=== PATIENT | female | born 1965 | race Native Hawaiian/Other Pacific Islander ===

== ENCOUNTER 2018-04-23 10:01 | Outpatient (CLI) | payer OTHER ==
[2018-04-23 10:23] LABS: PLATELET COUNT 501 K/uL (152-353)
== END 2018-04-23 19:14 | disposition home or self-care (01) ==
LOC: LABW 10:01
PROVIDERS: Internal Medicine
DX: E03.8 Other specified hypothyroidism (principal); E78.00 Pure hypercholesterolemia, unspecified; R79.89 Other specified abnormal findings of blood chemistry
CPT/HCPCS: 36415; 80053; 80061; 81000; 82306; 84439; 84443; 85027

== ENCOUNTER 2019-10-20 07:44 | Outpatient (CLI) | payer OTHER ==
[2019-10-20 09:49] LABS: PLATELET COUNT 500 K/uL (152-353)
== END 2019-10-20 19:46 | disposition home or self-care (01) ==
LOC: LABW 07:44
PROVIDERS: Internal Medicine
DX: E03.8 Other specified hypothyroidism (principal)
CPT/HCPCS: 36415; 80061; 81000; 82672; 83001; 83002; 84144; 84439; 84443; 85027

== ENCOUNTER 2020-06-24 15:02 | Outpatient (CLI) | payer OTHER | END 2020-06-24 19:25 | disposition home or self-care (01) | LOC: LAB 15:02 | DX: R30.0 Dysuria (principal) | CPT/HCPCS: 87088 ==

== ENCOUNTER 2020-11-20 12:45 | Outpatient (CLI) | payer OTHER ==
[2020-11-20 13:00] LABS: PLATELET COUNT 570 K/uL (152-353)
== END 2020-11-20 21:44 | disposition home or self-care (01) ==
LOC: LABW 12:45
PROVIDERS: ATTEND Internal Medicine Hematology & Oncology
DX: D47.3 Essential (hemorrhagic) thrombocythemia (principal)
CPT/HCPCS: 36415; 85027

== ENCOUNTER 2021-08-29 07:37 | Outpatient (CLI) | payer OTHER ==
[2021-08-29 08:45] LABS: POTASSIUM 4.2 mmol/L (3.6-5.2)
[2021-08-29 10:44] LABS: PLATELET COUNT 667 K/uL (152-353)
== END 2021-08-29 19:52 | disposition home or self-care (01) ==
LOC: LABW 07:37
PROVIDERS: ATTEND Internal Medicine
DX: E03.8 Other specified hypothyroidism (principal); I10 Essential (primary) hypertension; E55.9 Vitamin D deficiency, unspecified; D64.9 Anemia, unspecified
CPT/HCPCS: 36415; 80053; 80061; 81000; 82306; 82607; 82747; 83540; 83550; 84439; 84443; 85027

== ENCOUNTER 2021-09-01 14:26 | Outpatient (CLI) | payer OTHER | END 2021-09-01 20:09 | disposition home or self-care (01) | LOC: LAB 14:26 | PROVIDERS: ATTEND Internal Medicine | DX: D64.9 Anemia, unspecified (principal); I10 Essential (primary) hypertension; E55.9 Vitamin D deficiency, unspecified | CPT/HCPCS: 82746 ==

== ENCOUNTER 2021-09-04 19:27 | Outpatient (CLI) | payer OTHER | END 2021-09-04 21:35 | disposition home or self-care (01) | LOC: LABW 19:27 | PROVIDERS: ATTEND Internal Medicine | DX: D50.8 Other iron deficiency anemias (principal) | CPT/HCPCS: 82272 ==

== ENCOUNTER 2021-09-05 07:57 | Outpatient (CLI) | payer OTHER | END 2021-09-05 18:59 | disposition home or self-care (01) | LOC: LAB 07:57 | PROVIDERS: ATTEND Internal Medicine | DX: D50.8 Other iron deficiency anemias (principal) | CPT/HCPCS: 82272 ==

== ENCOUNTER 2021-09-06 06:00 | Outpatient (CLI) | payer OTHER | END 2021-09-06 19:16 | disposition home or self-care (01) | LOC: LAB 06:00 | PROVIDERS: ATTEND Internal Medicine | DX: D50.8 Other iron deficiency anemias (principal) | CPT/HCPCS: 82272 ==

== ENCOUNTER 2022-01-03 08:22 | Outpatient (CLI) | payer OTHER ==
[2022-01-03 08:48] LABS: PLATELET COUNT 435 K/uL (152-353)
[2022-01-03 09:13] LABS: POTASSIUM 4.2 mmol/L (3.6-5.2)
== END 2022-01-03 19:16 | disposition home or self-care (01) ==
LOC: LABW 08:22
PROVIDERS: ATTEND Internal Medicine
DX: I10 Essential (primary) hypertension (principal); E55.9 Vitamin D deficiency, unspecified; D51.0 Vitamin B12 deficiency anemia due to intrinsic factor deficiency; E03.8 Other specified hypothyroidism; D50.8 Other iron deficiency anemias
CPT/HCPCS: 36415; 80053; 80061; 82306; 82607; 82728; 82747; 83540; 83550; 84439; 84443; 85027